=== PATIENT | male | born 1985 | race Caucasian/White ===

== ENCOUNTER 2017-03-28 12:21 | Emergency (ER) | payer OTHER ==
--- NOTE | 2017-04-09 08:35 | ER ---
ADMIT: 03/28/2017 RM/LOC: ER [facility] MR#: [id number] [id number] [place], [place] [id number] DWAIN HUNTERNATHAN Hilario [address] [place] [address] Emergency Room Report SEX: M AGE: 31 : 1985 DATE: 03/28/2017 ADDENDUM: CHIEF COMPLAINT: Chest pain. HISTORY OF PRESENT ILLNESS: This is a 31-year-old male who has a history of having chest pain intermittently for the last year. It sounds like he has had a big workup. He has had echocardiogram. I did receive old records, which is normal. Also, he has had a Holter monitor that showed PACs. It sounds like they have been using different medications for this. Initially, they are using metoprolol now he is on a calcium channel merrill that he is not for sure the name of. Also, takes metformin twice daily. It sounds like, previous diagnosis has mixture of does have some PACs also with some anxiety. Here EKG was done. It is negative for any acute findings. No ST elevation or depression. His pain is resolved without him receiving any kind of medications here in the emergency room. I am giving him Family Practice doctor to follow up with later this week to establish care. CLINICAL IMPRESSION: Atypical chest pain with anxiety. TOMASA Guevara / Chicho Frances MD / izal JOB #: [id number] CC: Edgar Ballard MD, Attending Physician UNKNOWN, Family Physician
== END 2017-03-28 14:30 | disposition home or self-care (01) ==
LOC: ER 12:21
DX: R07.89 Other chest pain (principal); F41.9 Anxiety disorder, unspecified; E11.9 Type 2 diabetes mellitus without complications; F17.210 Nicotine dependence, cigarettes, uncomplicated; Z79.84 Long term (current) use of oral hypoglycemic drugs; Z79.899 Other long term (current) drug therapy